=== PATIENT | female | born 1970 | race Caucasian/White ===

== ENCOUNTER 2016-12-27 07:02 | Day surgery (SDC) | payer OTHER ==
[2016-12-27] VITALS (9 sets, daily range): BP systolic 113–137; BP diastolic 63–72; PULSE 54–78; RESP 12–19; Ht 167.6 cm; Wt 76.6 kg
[~2016-12-27] VITALS: Ht 167.6 cm; Wt 76.6 kg
[~2016-12-27 07:02] MED LIST: ACETAMINOPHEN 1000 MG/100 ML IVPB ONE
[2016-12-27] MEDS ORDERED: IBUP800T25 PO (07:58)
[2016-12-27] MEDS ORDERED: MIDAZOLAM 1 MG/ML 2 ML INJ ONE ×2 (08:29)
[2016-12-27] MEDS ORDERED: ROCURONIUM 50 MG INJ ONE ×2 (08:29→11:40)
[2016-12-27] MEDS ORDERED: PROPOFOL 20 ML ONE (08:29)
[2016-12-27] MEDS ORDERED: CEFAZOLIN 1 GM INJ ONE ×2 (08:30→11:45)
[2016-12-27] MEDS ORDERED: ROPIVACAINE 0.5 % 30 ML VIAL ONE ×2 (08:30→09:06)
[2016-12-27] MEDS ORDERED: ROPIVACAINE 0.2% 20 ML VIAL ONE (08:30)
[2016-12-27] MEDS ORDERED: FENTAnyl 50 MCG/ML VIAL ONE (08:30)
--- NOTE | 2016-12-27 08:42 | HPN ---
Date/Time of Note Date/Time of Note DATE: 12/27/16 TIME: 08:41 Interval H&P Admission Note Pt. seen H&P reviewed: No system changes NAN OBRIEN MD Dec 27, 2016 08:42
[2016-12-27] MEDS ORDERED: morphine 2 MG INJ IV PRN (09:00)
[2016-12-27] MEDS ORDERED: ONDANSETRON (ODT) 4 MG TAB ODT PRN (09:00)
[2016-12-27] MEDS ORDERED: OXYCODONE/ACETAMINOPHEN (5/325) TAB PO PRN ×3 (09:00→11:30)
[2016-12-27] MEDS ORDERED: BUPIVACAINE 0.5% (SDV) 30 ML INJ ONE (09:06)
[2016-12-27] MEDS ORDERED: POLYMYXIN/BACITRACIN 1L IRRIG ONE (09:06)
[2016-12-27] MEDS ORDERED: ONDANSETRON 4 MG INJ ONE (09:41)
[2016-12-27] MEDS ORDERED: METOCLOPRAMIDE 10 MG INJ ONE (09:41)
[2016-12-27] MEDS ORDERED: DEXAMETHASONE 4 MG/ML 1 ML INJ ONE (09:41)
[2016-12-27] MEDS ORDERED: KETOROLAC 30 MG INJ ONE (09:41)
[2016-12-27] MEDS ORDERED: POLYMYXIN/BACITRACIN 1L IRRIG IRR ONE (09:48)
[2016-12-27] MEDS ORDERED: EPHEDrine SULFATE 50 MG/5 ML SYG IV PRN (11:30)
[2016-12-27] MEDS ORDERED: METOCLOPRAMIDE 10 MG INJ IV PRN (11:30)
[2016-12-27] MEDS ORDERED: morphine (1 MG/ML) 10ML SYRINGE IV PRN ×3 (11:30)
[2016-12-27] MEDS ORDERED: LABETALOL HCL 20MG INJ IV PRN (11:30)
[2016-12-27] MEDS ORDERED: DIPHENHYDRAMINE 50 MG INJ IV PRN (11:30)
[2016-12-27] MEDS ORDERED: MEPERIDINE 25 MG INJ IV PRN (11:30)
[2016-12-27] MEDS ORDERED: FENTAnyl 50 MCG/ML VIAL IV PRN ×3 (11:30)
[2016-12-27] MEDS ORDERED: ALBUMIN HUMAN 5% 250 ML IV PRN (11:30)
[2016-12-27] MEDS ORDERED: ONDANSETRON 4 MG INJ IV PRN (11:30)
[2016-12-27] MEDS ORDERED: GLYCOPYRROLATE 0.4 MG INJ ONE (11:40)
[2016-12-27] MEDS ORDERED: NEOSTIGMINE 3 MG/3 ML SYRINGE ONE (11:40)
[2016-12-27] MEDS ORDERED: NEOMYC/POLYMYX/BACIT 3.5GM OPH OINT ONE (11:48)
[2016-12-27] MEDS ORDERED: NEOMYC/POLYMYX/BACIT 30 GM OINT ONE (11:49)
--- NOTE | 2016-12-27 12:46 | OPR ---
Date/Time of Note Date/Time of Note DATE: 12/27/16 TIME: 12:36 Operative Report Procedure Date: Dec 27, 2016 Surgeon: NAN OBRIEN MD assistant front desk manager: ARMIDA SIMONS Anesthesia Type: general, other (fascia illiacus block) Anesthesiologist: OCTAVIO HUMPHREYS MD Procedure Description PREOPERATIVE DIAGNOSES: 1. Right knee anterior cruciate ligament tear. 2. Right knee pain. 3. Right knee chondromalacia. POSTOPERATIVE DIAGNOSES: 1. Right knee anterior cruciate ligament tear. 2. Right knee chondromalacia. OPERATION PERFORMED: 1. Surgical arthroscopy of the right knee with anterior cruciate ligament reconstruction with tibialis anterior allograft. Fixation with a Mitek rigid loop adjustable button and a 8-10 interfix. 2. Chondroplasty of the medial compartments OPERATIVE FINDINGS AT SURGERY: Grade 2/3 chondromalacia of the medial femoral condyle; ACL tear, PCL intact. Tourniquet time: 85 minutes at 250 mmHg Implants: Tibial fixation with Mitek Intrafix 8-10 and femoral fixation with Mitek adjustable button rigid loop RISK NOTE: Patient was explained the risks and benefits of the surgery in the patients [place] language, including not limited to infection, bleeding, loss of limb, loss of life, need for future surgery, risk of anesthesia, risk of injury to the blood vessels and nerves, ligaments or tendons, and risk of deep vein thrombosis. Patient understood these risks and wished to proceed with the surgery. INDICATIONS: The patient is a 46-year-old female with a prolonged history of right knee giving way. She has had continued episodes of instability. The patient has restored their range of motion and is now brought to the operating room for ACL reconstruction, possible partial medial and lateral meniscectomy versus medial and lateral meniscal repair, chondroplasty and debridement. The risks, benefits, and alternatives of surgery were discussed with the patient. The risks included but were not limited to infection, bleeding, damage to vessels and nerves, loss of motion, continued pain, re-tear of the meniscus, deep venous thrombosis, and complications due to anesthesia including nerve injury, myocardial infarction, stroke, , etc. The patient stated understanding of the nature of the surgical procedure and gave written and verbal consent to proceed. PROCEDURE: The patient was brought to the operating room and placed supine on the operating room table. General anesthesia was induced and a fascia iliacus block was placed. The right lower extremity was examined under anesthesia. Range of motion was 0 degrees of extension to 135 degrees of flexion. There was no varus or valgus or posterolateral instability. She had no instability to varus or valgus stress at 0 or 30 degrees. He had a 2+ Roxie and drawer with a positive pivot shift The right lower extremity was then prepped and draped in the usual fashion. A tourniquet was placed proximally on the thigh over a bias stockinette. Patient was given preoperative Antibiotics A standard anterolateral parapatellar stab wound was created. The knee joint was entered with a blunt-tipped obturator, followed by the 30-degree video arthroscope. An anteromedial portal was established under arthroscopic control. A routine arthroscopic survey was performed. The suprapatellar pouch was unremarkable. The undersurface of the patella was well-preserved. The patella appeared to track centrally within the trochlear groove. Trochlea showed evidence of grade 1 chondromalacia. The medial and lateral gutters were inspected and there was no loose body seen. There was no hypertrophied plica. The popliteal hiatus was entered and was unremarkable. The lateral compartment was entered. The lateral femoral condyle exhibited no chondromalacia and the lateral tibial plateau appeared to have intact cartilage. The lateral meniscus was probed and appeared to be intact with no evidence of any tear. The intercondylar notch was visualized. The anterior cruciate ligament was torn from its femoral origin. There was an empty lateral wall. Posteromedially there was no loose body seen. The posterior cruciate ligament was visualized and appeared intact. The medial compartment was entered. The articular surfaces of the medial femoral condyle and medial tibial plateau were visualized. There was grade 2/3 chondromalacia noted on the medial femoral condyle, and noted grade 1 chondromalacia on the medial tibial plateau. The medial meniscus was visualized and appeared to be intact Attention was turned to reconstruction of the anterior cruciate ligament. Following exsanguination with an Esmarch bandage the tourniquet was inflated to 250 mm of mercury. Using a motorized shaver a limited notchplasty was performed, exposing the lateral wall and roof of the notch, identifying the [id number]-tib position. The stump of the anterior cruciate ligament was debrided. A Vector guide was placed intra-articularly between the tibial spines in line with the anterior horn of the lateral meniscus. A Ania wire was then inserted into the knee through a 2 cm incision made over the proximal medial tibia for the hamstring harvest. The incision was deepened through the subcutaneous tissue with subperiosteal dissection achieved. Bleeding points were coagulated with the Bovie electrocautery. A tibialis anterior allograft was used and prepared on the back table, accommodating a 10 mm graft on the femoral side and 10 mm graft on the tibial side. Tibial drilling was then carried out first with a 6 mm followed by a 8mm followed by 10 mm cylindrical reamer with the guide set at 55 degrees. Via an accessory medial portal, the Beath pin was drilled out the femoral cortex and skin with the knee in hyperflexion. The femoral tunnel was then created, with a spade tip guidewire, Depth-gauging confirmed a tunnel length of 35 mm. Then reaming proceeded, first with a 6 mm then an 8 then a 10mm drill to a depth of 25mm. A adjustable rigid loop Mitek button was selected. The graft was inserted intra -articularly and the Mitek button was deployed. The graft was cycled for 20 cycles with 25 pounds of force to pre-load the graft. Tibial fixation was carried out using a 8-10 Intra-Fix in 10 degrees of flexion with a posterior drawer. At the completion of surgery the patient had a firm stable Roxie. There was a negative pivot shift. She had a 0 firm Roxie and a negative pivot shift. There was no evidence for any roof or lateral wall impingement. The tourniquet was deflated at 85 minutes The knee was irrigated with two liters of lactated Ringer's solution. Excess fluid was drained. The tibial wounds were then copiously irrigated with bacitracin solution and closed in layers with #0, #2-0 and #3-0 Vicryl. The skin was reapproximated with #4-0 Monocryl. The knee was injected with 20 cc of 0.5% plain ropivacaine. A dry sterile dressing was applied, followed by a bulky bandage and MAISHA stocking with a cold therapy unit placed over the bulky bandage and MAISHA stocking, insuring no contact with the skin. A postoperative TROM brace was applied locked in full extension. The patient was awakened in the Operating Room and transported to the Recovery Room in satisfactory condition. She appeared to tolerate the procedure well. At the completion of surgery the patient had soft compartments, palpable pulses , and brisk capillary refill. There were no complications noted. NAN OBRIEN MD Dec 27, 2016 12:45
== END 2016-12-27 13:52 | disposition home or self-care (01) ==
LOC: SDS 07:02
PROVIDERS: ATTEND Orthopaedic Surgery
DX: M94.261 Chondromalacia, right knee (principal); S83.511D Sprain of anterior cruciate ligament of right knee, subsequent encounter; X58.XXXD Exposure to other specified factors, subsequent encounter
CPT/HCPCS: 29888; C1762; J0131; J0690; J1100; J1885; J2250; J2405; J2765; J2795; J3010; Z7512; Z7610; J2710